=== PATIENT | female | born 1945 | race Asian ===

== ENCOUNTER 2018-10-24 14:24 | Inpatient (IN) | payer MEDICARE, OTHER ==
[~2018-10-24] VITALS: Ht 157.5 cm; Wt 60.4 kg
[2018-10-24] MEDS ORDERED: SODIUM CHLORIDE 0.9% 1,000 ML IV ONE ×2 (15:33→21:15)
[2018-10-24] MEDS ORDERED: ONDANSETRON HCL 4 MG/2 ML VIAL IVP ONE ×2 (15:45→19:00)
[2018-10-24] MEDS ORDERED: MORPHINE SULFATE 4 MG/ML SYRINGE IVP ONE ×2 (15:45→19:00)
[2018-10-24 15:55] LABS: BASOPHILS % (AUTO) 0.8 % (0.0-2.0); EOSINOPHILS % (AUTO) 0.6 % (1.0-6.0); HEMATOCRIT 39.8 % (36-46); HEMOGLOBIN 13.2 g/dL (12.0-16.0); LYMPHOCYTES # (AUTO) 1.2 K/uL (1.0-4.8); LYMPHOCYTES % (AUTO) 11.4 % (22.0-44.0); MEAN CORPUSCULAR HEMOGLOBIN 30.1 pg (26.0-34.0); MEAN CORPUSCULAR HGB CONC 33.3 G/dL (31.0-37.0); MEAN CORPUSCULAR VOLUME 90 fL (80-100); MONOCYTES # (AUTO) 0.3 K/uL (0.1-1.0); NEUTROPHILS # (AUTO) 8.6 K/uL (1.8-7.7); NEUTROPHILS % (AUTO) 84.2 % (40.0-70.0); PLATELET COUNT (AUTO) 298 K/uL (150-450); RED CELL DISTRIBUTION WIDTH 13.2 % (11.5-14.5)
[2018-10-24 15:56] LABS: APPEARANCE,URINE CLEAR (CLEAR); BILIRUBIN,URINE NEGATIVE (NEGATIVE); GLUCOSE, URINE (UA) 250 mg/dL (NEGATIVE); KETONES,URINE NEGATIVE (NEGATIVE); LEUKOCYTE ESTERASE ,URINE NEGATIVE (NEGATIVE); NITRATE,URINE NEGATIVE (NEGATIVE); OCCULT BLOOD,URINE NEGATIVE (NEGATIVE); PH,URINE 7.5 (5.0-8.0); PROTEIN,URINE NEGATIVE (NEGATIVE); UROBILINOGEN,URINE 0.2 mg/dL (<=1.0)
[2018-10-24 16:03] LABS: ANION GAP 11 mmol/L (8-16); CALCIUM, TOTAL 9.3 mg/dL (8.8-10.5); CARBON DIOXIDE 26 mmol/L (22-29); CHLORIDE 98 mmol/L (98-107); CREATININE 0.77 mg/dL (0.60-1.30); GLUCOSE,RANDOM 213 mg/dL (70-110); POTASSIUM 3.7 mmol/L (3.5-5.1); SODIUM SERUM 135 mmol/L (136-145); UREA NITROGEN, BLOOD 13 mg/dL (7-18)
[2018-10-24 16:09] LABS: ALANINE AMINOTRANSFERASE 13 U/L (12-78); ALKALINE PHOSPHATASE 67 U/L (46-116); ASPARTATE AMINOTRANSFERASE 17 U/L (15-37); BILIRUBIN,TOTAL 0.8 mg/dL (0.1-1.0); GLOMERULAR FILTR. RATE CALC > 60 mL/min (>60); LIPASE 97 U/L (73-393)
[2018-10-24 16:19] LABS: BACTERIA,URINE None Seen /HPF (None Seen); RBC,URINE 0-2 /HPF (0-2); WBC,URINE 0-2 /HPF (0-5)
[2018-10-24 16:20] LABS: SQUAMOUS EPITHELIAL CELL,UR Rare /LPF (None Seen)
[2018-10-24] MEDS ORDERED: IOVERSOL 320 MG/ML 100 ML VIAL ONE (16:27)
[2018-10-24] MEDS ORDERED: SODIUM CHLORIDE 0.9% 100 ML ONE (16:28)
[2018-10-24] MEDS ORDERED: MAGNESIUM HYDROXIDE SUSPENSION 30 ML UDCUP PO PRN (21:15)
[2018-10-24] MEDS ORDERED: ACETAMINOPHEN 325 MG TABLET PO PRN (21:15)
[2018-10-24] MEDS ORDERED: BISACODYL 10 MG RECTAL RECTAL SUPPOSITORY PR PRN (21:15)
[2018-10-25] MEDS: MORPHINE SULFATE 4 MG/ML SYRINGE IVP PRN ×2 (00:49→10:05)
[2018-10-25 01:00] VITALS: BP 190/93
[2018-10-25 05:29] VITALS: BP 147/82
[2018-10-25] MEDS ORDERED: PNEUMOCOCCAL VACCINE POLYVALENT 0.5 ML VIAL [PPSV23] IM ONE (06:00)
[2018-10-25] MEDS: OxyCODONE HCL/ACETAMINOPHEN 5-325 MG TABLET PO PRN ×2 (06:28→16:09)
[2018-10-25 08:01] VITALS: BP 131/82
[2018-10-25] MEDS: DOCUSATE SODIUM 100 MG CAPSULE PO SCH ×2 (09:00→20:18)
[2018-10-25] MEDS: ENOXAPARIN SODIUM 40 MG/0.4 ML PF SYRINGE SQ SCH (09:57)
[2018-10-25] MEDS: PANTOPRAZOLE SODIUM 40 MG/VIAL IVP SCH (09:59)
[2018-10-25] MEDS ORDERED: OxyCODONE HCL/ACETAMINOPHEN 5-325 MG TABLET PO PRN (12:45)
[2018-10-25 13:14] VITALS: BP 163/81
[2018-10-25] MEDS ORDERED: ONDANSETRON HCL 4 MG/2 ML VIAL IVP PRN (14:00)
[2018-10-25 15:50] VITALS: BP 153/88
[2018-10-25 20:28] VITALS: BP 139/69
[2018-10-26 00:45] VITALS: BP 162/82
[2018-10-26 05:39] VITALS: BP 165/91
[2018-10-26] MEDS: OxyCODONE HCL/ACETAMINOPHEN 5-325 MG TABLET PO PRN (05:45)
[2018-10-26 07:47] VITALS: BP 151/74
[2018-10-26] MEDS: DOCUSATE SODIUM 100 MG CAPSULE PO SCH (09:37)
[2018-10-26] MEDS: PANTOPRAZOLE SODIUM 40 MG/VIAL IVP SCH (09:37)
[2018-10-26] MEDS: ENOXAPARIN SODIUM 40 MG/0.4 ML PF SYRINGE SQ SCH (09:37)
[2018-10-26] MEDS ORDERED: PERCT PO (11:26)
[2018-10-26] MEDS ORDERED: DSS100 PO (11:29)
[2018-10-26] MEDS ORDERED: ASPI81 PO (11:31)
[2018-10-26 11:45] VITALS: BP 135/73
== END 2018-10-26 12:20 | disposition home or self-care (01) | DRG 755 ==
LOC: EMS 14:26 → UNDOADMIN 23:00 → 6N 23:00
PROVIDERS: ADMIT Internal Medicine; ATTEND Internal Medicine
DX: C56.9 Malignant neoplasm of unspecified ovary (principal); D68.59 Other primary thrombophilia; K59.00 Constipation, unspecified; I10 Essential (primary) hypertension
CPT/HCPCS: 74177; 86304; 96374; 96375; 96376; 99291; C9113; G0378; J1650; J2270; J2405; J7030; J7050